=== PATIENT | male | born 1970 | race Hispanic/Latino ===

== ENCOUNTER 2016-11-09 13:24 | Emergency (ER) | payer MEDICAID, OTHER ==
[2016-11-09 13:42] VITALS: BMI 35.2
[2016-11-09 13:45] VITALS: RESP 16
--- NOTE | 2016-11-09 14:00 | ED PDOC ---
Arrival/HPI - General Chief Complaint: Lower Extremity Problem/Injury Time Seen by Provider: 11/09/16 13:44 Historian: Patient - History of Present Illness Narrative History of Present Illness (Text): 11/09/16 15:00 A 46 year old male, with no past medical history, presents to the emergency department complaining of left ankle pain. Patient reports pain radiates up his leg and to the back of buttocks. Patient reports pain worsens upon movement. He notes no trauma or swelling. Patient denies any other complaints at this time. Symptom Onset: Sudden Symptom Course: Unchanged Activities at Onset: Rest Associated Symptoms (Text): none Past Medical History - Provider Review Nursing Documentation Reviewed: Yes - Infectious Disease Hx of Infectious Diseases: None - Cardiac Hx Hypertension: Yes - Pulmonary Hx Respiratory Disorders: No - Neurological Hx Neurological Disorder: No - Renal Hx Renal Disorder: No - Endocrine/Metabolic Hx Endocrine Disorders: No - Hematological/Oncological Hx Blood Disorders: No - Integumentary Hx Dermatological Disorder: No - Musculoskeletal/Rheumatological Hx Arthritis: Yes Hx Gout: Yes - Gastrointestinal Hx Gastrointestinal Disorders: No - Genitourinary/Gynecological Hx Genitourinary Disorders: No - Psychiatric Hx Psychophysiologic Disorder: No Hx Depression: No Hx Substance Use: No - Surgical History Hx Joint Replacement: Yes (R knee) Other/Comment: right knee revision 11/19/2014 - Anesthesia Hx Anesthesia: Yes Hx Anesthesia Reactions: No Hx Malignant Hyperthermia: No - Suicidal Assessment Feels Threatened In Home Enviroment: No Family/Social History - Physician Review Nursing Documentation Reviewed: Yes Family/Social History: No Known Family HX Smoking Status: Never Smoked Hx Alcohol Use: No Hx Substance Use: No Hx Substance Use Treatment: No Allergies/Home Meds Allergies/Adverse Reactions: Allergies No Known Allergies Allergy (Verified 11/30/11 02:36) Home Medications: Home Meds Medication Instructions Recorded Confirmed Allopurinol 100 mg PO DAILY 11/30/11 06/10/15 Enalapril Maleate [Enalapril] 20 mg PO DAILY 11/30/11 06/10/15 Simvastatin 20 mg PO DAILY 11/30/11 06/10/15 Review of Systems - Physician Review All systems were reviewed & negative as marked: Yes - Review of Systems Constitutional: Normal Eyes: Normal ENT: Normal Respiratory: Normal Cardiovascular: Normal Gastrointestinal: Normal Genitourinary Male: Normal Musculoskeletal: Other (L ankle pain) Skin: Normal Neurological: Normal Endocrine: Normal Hemo/Lymphatic: Normal Psychiatric: Normal Physical Exam Vital Signs Reviewed: Yes Vital Signs Temp Pulse Resp BP Pulse Ox 11/09/16 16:35 97.7 F 65 16 110/63 96 11/09/16 13:24 98.1 F 70 16 122/65 95 Temperature: Afebrile Blood Pressure: Normal Pulse: Regular Respiratory Rate: Normal Appearance: Positive for: Well-Appearing, Non-Toxic, Comfortable Pain Distress: None Mental Status: Positive for: Alert and Oriented X 3 - Systems Exam Head: Present: Atraumatic, Normocephalic Pupils: Present: PERRL Extroacular Muscles: Present: EOMI Conjunctiva: Present: Normal Mouth: Present: Moist Mucous Membranes Neck: Present: Normal Range of Motion Respiratory/Chest: Present: Clear to Auscultation, Good Air Exchange. No: Respiratory Distress, Accessory Muscle Use Cardiovascular: Present: Regular Rate and Rhythm, Normal S1, S2. No: Murmurs Abdomen: Present: Normal Bowel Sounds. No: Tenderness, Distention, Peritoneal Signs Upper Extremity: Present: Normal Inspection. No: Cyanosis, Edema Lower Extremity: Present: Tenderness (around medial malleolus, strength intact) . No: Swelling (calf), Other (tenderness sciatica) Neurological: Present: GCS=15, CN II-XII Intact, Speech Normal Skin: Present: Warm, Dry, Normal Color. No: Rashes Psychiatric: Present: Alert, Oriented x 3, Normal Insight, Normal Concentration Medical Decision Making ED Course and Treatment: 11/09/16 13:56 Impression: A 46 year old male with radiating left ankle pain. Differential Diagnosis included but are not limited to: tendonitis vs. muscle strain vs. DVT Plan: -- Radiology ankle left -- labs -- Toradol -- Reassess and disposition Prior Visits: Notes and results from previous visits were reviewed. Patient last reported to the emergency department on 06/10/15 for evaluation of right hand pain. Patient was discharged and advised to take Vicoprofen. Progress Notes: 11/09/16 18:57 Sono reported by [employer] tech as negative. Patient is feeling better. Will Rx Naproxen and have him f/u with his PMD. - Lab Interpretations Lab Results: Lab Results 11/09/16 15:58: D-Dimer, Quantitative 0.92 H I have reviewed the lab results: Yes - RAD Interpretation Radiology Orders: 11/09/16 13:52 ANKLE LEFT 3 VIEWS ROUTINE [RAD] Stat 11/09/16 17:56 DUPLEX LOWER EXTRM VEIN LEFT [US] Stat - Medication Orders Current Medication Orders: Discontinued Medications Ketorolac Tromethamine (Toradol) 60 mg IM STAT STA Stop: 11/09/16 13:53 Last Admin: 11/09/16 15:53 Dose: 60 mg - Scribe Statement The provider has reviewed the documentation as recorded by the Lela Black Provider Scribe Attestation: All medical record entries made by the Shobhaibjuliana were at my direction and personally dictated by me. I have reviewed the chart and agree that the record accurately reflects my personal performance of the history, physical exam, medical decision making, and the department course for this patient. I have also personally directed, reviewed, and agree with the discharge instructions and disposition. Disposition/Present on Arrival - Present on Arrival Any Indicators Present on Arrival: No History of DVT/PE: No History of Uncontrolled Diabetes: No Urinary Catheter: No History of Decub. Ulcer: No History Surgical Site Infection Following: None - Disposition Have Diagnosis and Disposition been Completed?: Yes Diagnosis: Leg pain, Sciatica, Ankle strain Disposition: HOME/ ROUTINE Disposition Time: 18:57 Patient Plan: Discharge Patient Problems: Current Active Problems Problem Status Onset Ankle strain Acute Leg pain Acute Sciatica Acute Condition: IMPROVED Discharge Instructions (ExitCare): Muscle Strain (ED), Sciatica (ED) Additional Instructions: Mr Juarez, thank you for letting us take care of you today. Your provider was Dr. Powell. You were treated for Leg Pain, Sciatica. The emergency medical care you received today was directed at your acute symptoms. If you were prescribed any medication, please fill it and take as directed. It may take several days for your symptoms to resolve. Return to the Emergency Department if your symptoms worsen, do not improve, or if you have any other problems. Please contact your doctor or call one of the physicians/clinics you have been referred to that are listed on the Patient Visit Information form that is included in your discharge packet. Bring any paperwork you were given at discharge with you along with any medications you are taking to your follow up visit. Our treatment cannot replace ongoing medical care by a primary care provider (PCP) outside of the emergency department. Thank you for allowing the [facility] team to be part of your care today. If you had an X-Ray or CT scan: A Radiologist will review the ED reading if any change in treatment is needed we will contact you. If you had a blood, urine, or wound culture: It will take several days for the results, if any change in treatment is needed we will contact you. If you had an STI test: It will take 48 hours for the results. Please call after 1 week if you have not heard back. Prescriptions: Naproxen 500 mg PO BID PRN #30 tab PRN Reason: Pain, Moderate (4-7) Referrals: Macrina Rivera MD [Primary Care Provider] - Follow up with primary Forms: [employer] (Panamanian), WORK NOTE
--- NOTE | 2016-11-09 16:16 | RAD ---
PROCEDURE: Left Ankle Radiographs. HISTORY: ankle pain r/o fx COMPARISON: None FINDINGS: BONES: Normal. No fracture. JOINTS: Normal. No osteoarthritis. Ankle mortise maintained. Talar dome intact SOFT TISSUES: Normal. OTHER FINDINGS: None. IMPRESSION: Normal left ankle radiographs.
[2016-11-09 16:35] VITALS: BP 110/63; PULSE 65; TEMP 97.7; O2SAT 96
--- NOTE | 2016-11-10 18:14 | US ---
PROCEDURE: Left lower extremity venous US HISTORY: Leg pain and swelling. Evaluate for DVT. PHYSICIAN(S): Naresh Maldonado MD. TECHNIQUE: Duplex sonography and color-flow Doppler with graded compression were used to evaluate the deep venous system of the left lower extremity. FINDINGS: The visualized deep venous system of the left lower extremity is sonographically normal and compressible. Normal wave forms and augmentation are seen. There is no sonographic evidence for deep venous thrombosis in the visualized segments of the left lower extremity. IMPRESSION: 1. No sonographic evidence for deep venous thrombosis in the visualized segments of the left lower extremity.
== END 2016-11-09 19:16 | disposition home or self-care (01) ==
LOC: ED 13:24
DX: S96.912A Strain of unspecified muscle and tendon at ankle and foot level, left foot, initial encounter (principal); X58.XXXA Exposure to other specified factors, initial encounter; Y92.89 Other specified places as the place of occurrence of the external cause; M54.30 Sciatica, unspecified side; M79.605 Pain in left leg; I10 Essential (primary) hypertension; M19.90 Unspecified osteoarthritis, unspecified site
CPT/HCPCS: 73610; 85378; 93971; 96372; 99281; J1885

== ENCOUNTER 2018-01-21 07:33 | Emergency (ER) | payer OTHER ==
[2018-01-21 07:33] VITALS: BMI 35.2
--- NOTE | 2018-01-21 09:08 | ED PDOC ---
Arrival/HPI - General Chief Complaint: Upper Extremity Problem/Injury Time Seen by Provider: 01/21/18 07:53 - History of Present Illness Narrative History of Present Illness (Text): 47 year old male with history of gout and HTN presents with 4 days of left wrist pain, swelling and redness that radiates to his elbow and right 3rd digit proximal interphalangeal joint redness, swelling, and tenderness. Patient reports that the pain is squeezing and has not remitted with motrin Q4, colcigen TID since Monday. Patient reports pain and swelling has worsened over the past 4 days. 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 Patient denies fever, headache, dizziness, chest pain, heart palpitations, shortness of breath, nausea, vomiting, constipation, diarrhea, dysuria, hematuria. Patient's PCP is Dr. Emil Rivera. ([facility]) Past Medical History - Provider Review Nursing Documentation Reviewed: Yes - Infectious Disease Hx of Infectious Diseases: None - Cardiac Hx Hypertension: Yes - Pulmonary Hx Respiratory Disorders: No - Neurological Hx Neurological Disorder: No - Renal Hx Renal Disorder: No - Endocrine/Metabolic Hx Endocrine Disorders: No - Hematological/Oncological Hx Blood Disorders: No - Integumentary Hx Dermatological Disorder: No - Musculoskeletal/Rheumatological Hx Arthritis: Yes Hx Gout: Yes - Gastrointestinal Hx Gastrointestinal Disorders: No - Genitourinary/Gynecological Hx Genitourinary Disorders: No - Psychiatric Hx Psychophysiologic Disorder: No Hx Depression: No Hx Substance Use: No - Surgical History Hx Joint Replacement: Yes (R knee) Other/Comment: right knee revision 11/19/2014 - Anesthesia Hx Anesthesia: Yes Hx Anesthesia Reactions: No Hx Malignant Hyperthermia: No - Suicidal Assessment Feels Threatened In Home Enviroment: No Family/Social History - Physician Review Nursing Documentation Reviewed: Yes Family/Social History: No Known Family HX Smoking Status: Never Smoked Hx Alcohol Use: No Hx Substance Use: No Hx Substance Use Treatment: No Allergies/Home Meds Allergies/Adverse Reactions: Allergies No Known Allergies Allergy (Verified 11/30/11 02:36) Home Medications: Home Meds Medication Instructions Recorded Confirmed Allopurinol 100 mg PO DAILY 11/30/11 06/10/15 Enalapril Maleate [Enalapril] 20 mg PO DAILY 11/30/11 06/10/15 Simvastatin 20 mg PO DAILY 11/30/11 06/10/15 Review of Systems - Physician Review All systems were reviewed & negative as marked: Yes - Review of Systems Constitutional: Normal Eyes: Normal ENT: Normal Respiratory: Normal Cardiovascular: Normal Gastrointestinal: Normal Genitourinary Male: Normal Musculoskeletal: Joint Swelling (redness, warmth of left wrist and right middle digit PIP joints) Skin: Other (redness and swelling of left wrist and right middle digit PIP joint ) Neurological: Normal Physical Exam Vital Signs Reviewed: Yes Temperature: Afebrile Blood Pressure: Normal Pulse: Regular Respiratory Rate: Normal Appearance: Positive for: Well-Appearing Pain Distress: Severe Mental Status: Positive for: Alert and Oriented X 3 - Systems Exam Head: Present: Atraumatic, Normocephalic Pupils: Present: PERRL Extroacular Muscles: Present: EOMI Conjunctiva: Present: Normal Nose (External): Present: Atraumatic Respiratory/Chest: Present: Clear to Auscultation Cardiovascular: Present: Regular Rate and Rhythm, Normal S1, S2 Abdomen: Present: Normal Bowel Sounds. No: Tenderness, Distention Upper Extremity: Present: NORMAL PULSES, Tenderness, Swelling (of left wrist and right middle finger. entire left hand is swollen), Erythema. No: Normal ROM Lower Extremity: Present: Normal Inspection, NORMAL PULSES, Normal ROM Neurological: Present: GCS=15, CN II-XII Intact, Speech Normal, Motor Func Grossly Intact Skin: Present: Warm, Dry. 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 Assessment: gout vs. arthritis Plan: Left wrist X ray ordered to evaluate for fractures or other causes for swelling of left hand. Tramadol ordered for pain. Prednisone ordered to reduce inflammation. 01/21/18 09:12 Patient's left wrist X ray shows no acute changes. Patient can be discharged with a medrol dose pack and tramadol 50 mg to relieve symptoms. (Evita Brower) 47 yo male with c/o left wrist pain and swelling and right 3rd digit PIP swelling. No trauma. I agree with resident history, physical, assessment and plan. Patient's wrist obtained and xray which was negative for acute fracture. Patient was given good pain control and steroids. He will be discharged on Tramadol Rx and a Medrol dose pack. We advised him to make sure he follow ups with his primary care doctor. (Michael Powell) - RAD Interpretation Radiology Orders: 01/21/18 08:42 WRIST, LEFT 3 VIEWS [RAD] Stat - Medication Orders Current Medication Orders: Discontinued Medications Prednisone (Prednisone Tab) 50 mg PO STAT STA Stop: 01/21/18 08:40 Last Admin: 01/21/18 09:15 Dose: 50 mg Tramadol HCl (Ultram) 50 mg PO STAT STA Stop: 01/21/18 08:39 Last Admin: 01/21/18 09:14 Dose: 50 mg BANNER Pain Assessment Document 01/21/18 09:14 REEDJ (Rec: 01/21/18 09:14 REEDJ [id number]) Pain Reassessment Is this a pain reassessment? Yes Sleep Is patient sleeping during reassessment? No Presence of Pain Presence of Pain Yes Pain Scale Used Pain Scale Used Numeric Location Left, Right or Bilateral Left Pain Location Body Site Wrist Hand Description Description Constant Alleviating Factors/Management Medication Techniques - PA / BAIL AGENT / Resident Statement / has reviewed & agrees with the documentation as recorded. /DO has examined the patient and agrees with the treatment plan. Disposition/Present on Arrival - Present on Arrival Any Indicators Present on Arrival: No History of DVT/PE: No History of Uncontrolled Diabetes: No Urinary Catheter: No History of Decub. Ulcer: No History Surgical Site Infection Following: None - Disposition Have Diagnosis and Disposition been Completed?: Yes Disposition Time: 09:15 Patient Plan: Discharge - Disposition Diagnosis: Gout Disposition: HOME/ ROUTINE Condition: IMPROVED Discharge Instructions (ExitCare): Gout, Lifestyle Changes to Manage Gout Additional Instructions: LADAN CONRAD JR, thank you for letting us take care of you today. Your provider was Michael L Rabines DO and you were treated for GOUT. The emergency medical care you received today was directed at your acute symptoms. If you were prescribed any medication, please fill it and take as directed. It may take several days for your symptoms to resolve. Return to the Emergency Department if your symptoms worsen, do not improve, or if you have any other problems. Please contact your doctor or call one of the physicians/clinics you have been referred to that are listed on the Patient Visit Information form that is included in your discharge packet. Bring any paperwork you were given at discharge with you along with any medications you are taking to your follow up visit. Our treatment cannot replace ongoing medical care by a primary care provider outside of the emergency department. Thank you for allowing the [email or web address] team to be part of your care today. If you had an X-Ray or CT scan: A Radiologist will review the ED reading if any change in treatment is needed we will contact you. If you had a blood, urine, or wound culture: It will take several days for the results, if any change in treatment is needed we will contact you. If you had an STI test: It will take 48 hours for the results. Please call after 1 week if you have not heard back. Prescriptions: Methylprednisolone [Medrol Dose Pack (21 tabs)] 4 mg PO DAILY #21 mg traMADol [Ultram] 50 mg PO Q6H PRN #20 tab PRN Reason: Pain, Moderate (4-7) Referrals: Filiberto Rivera MD [Staff Provider] - Follow up with primary Forms: [employer] (Danish), WORK NOTE
[2018-01-21 09:25] VITALS: BP 138/82; PULSE 92; RESP 16; TEMP 98.4; O2SAT 99
--- NOTE | 2018-01-21 10:18 | RAD ---
Date of service: 01/21/2018 PROCEDURE: Left Wrist Radiographs. HISTORY: gout attack COMPARISON: None. FINDINGS: BONES: There is severe reduced joint space between the pisiform and ulna. There are subarticular cystic changes in the distal ulna and pisiform. There are marginal osteophytes of the ulna. JOINTS: Normal. No dislocation. SOFT TISSUES: There is soft tissue swelling overlying the ulnocarpal joint. OTHER FINDINGS: None. 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 No definite evidence for bone erosion. Findings are most compatible with gout with the stated clinical history.
== END 2018-01-21 09:21 | disposition home or self-care (01) ==
LOC: ED 07:33
DX: M10.9 Gout, unspecified (principal); I10 Essential (primary) hypertension

== ENCOUNTER 2018-04-01 11:03 | Emergency (ER) | payer OTHER ==
[2018-04-01 11:03] VITALS: BMI 35.2
[2018-04-01 11:24] VITALS: BP 110/74; PULSE 75; RESP 16; TEMP 98.1; O2SAT 96
--- NOTE | 2018-04-01 11:49 | ED PDOC ---
Arrival/HPI - History of Present Illness Narrative History of Present Illness (Text): 04/01/18 11:43 Pt is a 47 yo M with pmhx of gout, and HTN who presents for R eye pain. 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 He reports that after he felt the something come into his eye, he immediately flushed the eye for 1 minute. He then stated that he felt a bit better, but then yesterday he noticed that the pain came back and there was some burning in his eye particularly when he would blink. He got some eye drops and attempted to flush his eyes again with the eye drops, but states that it didnt help. He currently denies any photophobia, double vision, change in vision, any discharge from the eye, and he denies being a contact lens user. He admits to a burning pain that happens when he blinks and a feeling that there is something still in his eye. He also denies any fevers, chills, SOB, CP, palp, abd pain, or n/v. Pmhx: Gout, HTN Pshx: R knee revision All: NKDA Social: No smoking, no alcohol or illicit drug use Fam Hx: Denies <Gurdeep Bernal - Last Filed: 04/01/18 13:35> <Emil Santana DO - Last Filed: 04/01/18 17:56> - General Chief Complaint: Eye Problem Time Seen by Provider: 04/01/18 11:06 Past Medical History - Provider Review Nursing Documentation Reviewed: Yes - Infectious Disease Hx of Infectious Diseases: None - Cardiac Hx Cardiac Disorders: Yes Hx Hypertension: Yes - Pulmonary Hx Respiratory Disorders: No - Neurological Hx Neurological Disorder: No - HEENT Hx HEENT Disorder: No - Renal Hx Renal Disorder: No - Endocrine/Metabolic Hx Endocrine Disorders: No - Hematological/Oncological Hx Blood Disorders: No - Integumentary Hx Dermatological Disorder: No - Musculoskeletal/Rheumatological Hx Musculoskeletal Disorders: Yes Hx Arthritis: Yes Hx Back Pain: Yes Hx Gout: Yes - Gastrointestinal Hx Gastrointestinal Disorders: No - Genitourinary/Gynecological Hx Genitourinary Disorders: No - Psychiatric Hx Psychophysiologic Disorder: No Hx Depression: No Hx Substance Use: No - Surgical History Hx Joint Replacement: Yes (R knee) Other/Comment: right knee - Anesthesia Hx Anesthesia: Yes Hx Anesthesia Reactions: No Hx Malignant Hyperthermia: No - Suicidal Assessment Feels Threatened In Home Enviroment: No <Gurdeep Bernal - Last Filed: 04/01/18 13:35> Family/Social History - Physician Review Nursing Documentation Reviewed: Yes Family/Social History: No Known Family HX Smoking Status: Never Smoked Hx Alcohol Use: No Hx Substance Use: No Hx Substance Use Treatment: No <Lex Bernalhammad - Last Filed: 04/01/18 13:35> Allergies/Home Meds <Lex Bernalhammad - Last Filed: 04/01/18 13:35> <Emil Santana DO - Last Filed: 04/01/18 17:56> Allergies/Adverse Reactions: Allergies No Known Allergies Allergy (Verified 11/30/11 02:36) Home Medications: Home Meds Medication Instructions Recorded Confirmed Enalapril Maleate [Enalapril] 20 mg PO DAILY 11/30/11 04/01/18 Review of Systems - Physician Review All systems were reviewed & negative as marked: Yes - Review of Systems Constitutional: absent: Fevers Eyes: Eye Pain (R sided burning pain). absent: Vision Changes, Photophobia Respiratory: absent: SOB, Cough Cardiovascular: absent: Chest Pain, Palpitations Gastrointestinal: absent: Abdominal Pain, Nausea, Vomiting <Gurdeep Bernal - Last Filed: 04/01/18 13:35> Physical Exam Vital Signs Reviewed: Yes Vital Signs Temp Pulse Resp BP Pulse Ox 04/01/18 11:14 98.1 F 75 16 110/74 96 Temperature: Afebrile Blood Pressure: Normal Pulse: Regular Respiratory Rate: Normal Appearance: Positive for: Non-Toxic, Uncomfortable Pain Distress: Mild Mental Status: Positive for: Alert and Oriented X 3 - Systems Exam Head: Present: Atraumatic, Normocephalic Pupils: Present: PERRL Extroacular Muscles: Present: EOMI Conjunctiva: Present: Normal, Other (Performed a fluorescein slit lamp test, minor abrasion noted in the superior nasal quadrant of the R eye. ) Mouth: Present: Moist Mucous Membranes Respiratory/Chest: Present: Clear to Auscultation, Good Air Exchange. No: Respiratory Distress, Accessory Muscle Use, Wheezes Cardiovascular: Present: Regular Rate and Rhythm, Normal S1, S2. No: Murmurs, Rub, Gallop Abdomen: Present: Normal Bowel Sounds. No: Tenderness, Distention, Peritoneal Signs, Rebound, Guarding Lower Extremity: Present: Normal Inspection. No: Edema, CALF TENDERNESS Neurological: Present: GCS=15, CN II-XII Intact, Speech Normal Skin: Present: Warm, Dry, Normal Color. No: Rashes Psychiatric: Present: Alert, Oriented x 3, Normal Insight, Normal Concentration <Gurdeep Bernal - Last Filed: 04/01/18 13:35> Vital Signs Temp Pulse Resp BP Pulse Ox 04/01/18 11:14 98.1 F 75 16 110/74 96 <Emil Santana DO - Last Filed: 04/01/18 17:56> Medical Decision Making ED Course and Treatment: 04/01/18 12:08 Pt is a 47 yo M with pmhx detailed above who presented with R eye pain after foreign body from metal grinding at work. No foreign body noted on exam. - performed fluorescein slit lamp, with minor abrasion noted. - Abx drops prescribed. Encouraged pt to f/u outpt with opthamology. <Gurdeep Bernal - Last Filed: 04/01/18 13:35> ED Course and Treatment: 04/01/18 12:15 IMPRESSION: No acute findings related to/accounting for the clinical presentation. <Emil Santana DO - Last Filed: 04/01/18 17:56> - PA / SYSTEM TECHNOLOGIST / Resident Statement WERNER has reviewed & agrees with the documentation as recorded. WERNER has examined the patient and agrees with the treatment plan. - Scribe Statement The provider has reviewed the documentation as recorded by the Shobhaibjuliana Evangelista All medical record entries made by the Lela were at my direction and personally dictated by me. I have reviewed the chart and agree that the record accurately reflects my personal performance of the history, physical exam, medical decision making, and the department course for this patient. I have also personally directed, reviewed, and agree with the discharge instructions and disposition. <Emil Santana DO - Last Filed: 04/01/18 17:56> Disposition/Present on Arrival - Present on Arrival Any Indicators Present on Arrival: No History of DVT/PE: No History of Uncontrolled Diabetes: No Urinary Catheter: No History of Decub. Ulcer: No History Surgical Site Infection Following: None - Disposition Have Diagnosis and Disposition been Completed?: Yes Disposition Time: 12:10 <Gurdeep Bernal - Last Filed: 04/01/18 13:35> - Disposition Disposition Time: 11:40 <Emil Santana DO - Last Filed: 04/01/18 17:56> - Disposition Diagnosis: Corneal abrasion Disposition: HOME/ ROUTINE Condition: GOOD Discharge Instructions (ExitCare): Corneal Abrasion (DC), Foreign Body in Eye (DC) Additional Instructions: LADAN CONRAD JR, thank you for letting us take care of you today. The emergency medical care you received today was directed at your acute symptoms. If you were prescribed any medication, please fill it and take as directed. It may take several days for your symptoms to resolve. Return to the Emergency Department if your symptoms worsen, do not improve, or if you have any other problems. Please contact your doctor or call one of the physicians/clinics you have been referred to that are listed on the Patient Visit Information form that is included in your discharge packet. Bring any paperwork you were given at discharge with you along with any medications you are taking to your follow up visit. Our treatment cannot replace ongoing medical care by a primary care provider outside of the emergency department. Thank you for allowing the [facility] team to be part of your care today. Follow up with the eye doctor tomorrow for re-evaluation and further management. Prescriptions: Polymyxin/Trimethoprim Sulfate [Polytrim Ophth Soln] 2 drop OD Q6 #1 bottle Referrals: Charlie Cramer MD [Staff Provider] - Follow up with primary Forms: [email or web address] ([place])
== END 2018-04-01 12:09 | disposition home or self-care (01) ==
LOC: ED 11:03
DX: S05.01XA Injury of conjunctiva and corneal abrasion without foreign body, right eye, initial encounter (principal); X58.XXXA Exposure to other specified factors, initial encounter; Y92.89 Other specified places as the place of occurrence of the external cause; Y99.0 Civilian activity done for income or pay

== ENCOUNTER 2018-04-22 06:21 | Emergency (ER) | payer OTHER ==
[2018-04-22 06:22] VITALS: BMI 35.2
[2018-04-22 06:47] VITALS: RESP 18; O2SAT 96
--- NOTE | 2018-04-22 07:12 | ED PDOC ---
Arrival/HPI - General Chief Complaint: Upper Extremity Problem/Injury Time Seen by Provider: 04/22/18 06:59 - History of Present Illness Narrative History of Present Illness (Text): 47 yr old male w/ hx of gout, HTN, HLD p/w RUE and LUE pain. Pt notes pain to R and L elbow and R middle finger, started 4 days ago, feels exactly like previous gout flare. Pt notes he has been taking Ibuprofen for the pain with mild relief. He notes that he came in today because yesterday he tried to see his PMD: Dr. Rivera, but PMDs office was closed. He notes that he commonly has flairs like this from his gout, even thought he maintains a relatively protein and etoh free diet. He notes that usually when he goes to Dr. Gan office he gets steroid injections. He denies any recent injection immediately before this pain started. No falls or trauma. No open wounds. No fever, chills or night sweats. No chest pain or sob. No abdominal pain or GI or complaints. No rashes. PMD: Dr. Rivera 04/22/18 07:23 Past Medical History - Infectious Disease Hx of Infectious Diseases: None - Cardiac Hx Cardiac Disorders: Yes Hx Hypertension: Yes - Pulmonary Hx Respiratory Disorders: No - Neurological Hx Neurological Disorder: No - HEENT Hx HEENT Disorder: No - Renal Hx Renal Disorder: No - Endocrine/Metabolic Hx Endocrine Disorders: No - Hematological/Oncological Hx Blood Disorders: No - Integumentary Hx Dermatological Disorder: No - Musculoskeletal/Rheumatological Hx Musculoskeletal Disorders: Yes Hx Arthritis: Yes Hx Back Pain: Yes Hx Gout: Yes - Gastrointestinal Hx Gastrointestinal Disorders: No - Genitourinary/Gynecological Hx Genitourinary Disorders: No - Psychiatric Hx Psychophysiologic Disorder: No Hx Depression: No Hx Substance Use: No - Surgical History Hx Joint Replacement: Yes (R knee) Other/Comment: right knee - Anesthesia Hx Anesthesia: Yes Hx Anesthesia Reactions: No Hx Malignant Hyperthermia: No - Suicidal Assessment Feels Threatened In Home Enviroment: No Family/Social History Family/Social History: Unknown Family HX Smoking Status: Never Smoked Hx Alcohol Use: No Hx Substance Use: No Hx Substance Use Treatment: No Allergies/Home Meds Allergies/Adverse Reactions: Allergies No Known Allergies Allergy (Verified 04/22/18 06:35) Home Medications: Home Meds Medication Instructions Recorded Confirmed Enalapril Maleate [Vasotec] 20 mg PO DAILY 04/22/18 04/22/18 Simvastatin [Zocor] 1 tab PO DAILY 04/22/18 04/22/18 Review of Systems - Review of Systems Constitutional: absent: Fatigue, Weight Change, Fevers Eyes: absent: Vision Changes, Photophobia ENT: absent: Hearing Changes, Tinnitus Respiratory: absent: SOB, Cough Cardiovascular: absent: Chest Pain, Palpitations Gastrointestinal: absent: Abdominal Pain, Stool Changes, Vomiting Genitourinary Male: absent: Dysuria, Frequency Musculoskeletal: absent: Arthralgias, Back Pain Skin: absent: Rash Neurological: absent: Headache, Dizziness Endocrine: absent: Diaphoresis Psychiatric: absent: Anxiety Physical Exam Vital Signs Reviewed: Yes Vital Signs Temp Pulse Resp BP Pulse Ox 04/22/18 06:36 98.4 F 89 18 137/85 96 Temperature: Afebrile Blood Pressure: Normal Pulse: Regular Respiratory Rate: Normal Appearance: Positive for: Well-Appearing, Non-Toxic, Comfortable Pain Distress: None Mental Status: Positive for: Alert and Oriented X 3 - Systems Exam Head: Present: Atraumatic, Normocephalic. No: Tenderness Pupils: Present: PERRL Extroacular Muscles: Present: EOMI Conjunctiva: Present: Normal Ears: Present: Normal Mouth: Present: Moist Mucous Membranes, Dry Pharnyx: Present: Normal Nose (Internal): Present: Normal Inspection, No Active Bleeding Neck: Present: Normal Range of Motion. No: Meningeal Signs, MIDLINE TENDERNESS Respiratory/Chest: Present: Clear to Auscultation, Good Air Exchange. No: Respiratory Distress Cardiovascular: Present: Regular Rate and Rhythm, Murmurs, Normal S1, S2, Peripheal Pulses Present Abdomen: Present: Normal Bowel Sounds. No: Tenderness, Distention, Peritoneal Signs Back: Present: Normal Inspection. No: CVA Tenderness Upper Extremity: Present: Normal Inspection, Normal ROM (pain w/ active ROM, no pain w/ passive ROM), NORMAL PULSES, Tenderness (R elbow, L elbow and R 3rd PIP, warm to touch, TTP, no overlying erythema or crepitus. No contusions. ), Capillary Refill < 2s. No: Erythema, Deformity Lower Extremity: Present: Normal Inspection Neurological: Present: GCS=15, CN II-XII Intact, Speech Normal Skin: Present: Warm, Dry Psychiatric: Present: Alert, Oriented x 3, Normal Insight Medical Decision Making ED Course and Treatment: 47 yr old male w/ hx of htn, hld, gout p/w RUE and LUE pain similiar to previous gout flare. No signs of overlying erythema, fluctuance, induration, crepitus or trauma. Similiar occurences in past where pt usually saw PMD but had trouble seeing PMD yesterday. No recent injections or breaks in skin. No Knavel signs in RUE 3rd digit. No signs of septic joint on exam. Will seek xrays and reassessment. Pending: Xray, Pain control, Reassessment. 04/22/18 07:55 Xrays reviewed: unremarkable. Pending reassessment. 04/22/18 08:00 No erythema to joint Pain improved, Clear for D/c Home. Disposition/Present on Arrival - Present on Arrival Any Indicators Present on Arrival: No History of DVT/PE: No History of Uncontrolled Diabetes: No Urinary Catheter: No History of Decub. Ulcer: No History Surgical Site Infection Following: None - Disposition Have Diagnosis and Disposition been Completed?: Yes Diagnosis: Gout Disposition: HOME/ ROUTINE Disposition Time: 08:00 Patient Problems: Current Active Problems Problem Status Onset Gout Acute Condition: GOOD Discharge Instructions (ExitCare): Gout, Lifestyle Changes to Manage Gout Additional Instructions: LADAN CONRAD JR, thank you for letting us take care of you today. Your provider was Reji Barrera and you were treated for infection. The emergency medical care you received today was directed at your acute symptoms. If you were prescribed any medication, please fill it and take as directed. It may take several days for your symptoms to resolve. Return to the Emergency Department if your symptoms worsen, do not improve, or if you have any other problems. Please contact your doctor or call one of the physicians/clinics you have been referred to that are listed on the Patient Visit Information form that is included in your discharge packet. Bring any paperwork you were given at discharge with you along with any medications you are taking to your follow up visit. Our treatment cannot replace ongoing medical care by a primary care provider outside of the emergency department. Thank you for allowing the [facility] team to be part of your care today. If you had an X-Ray or CT scan: A Radiologist will review the ED reading if any change in treatment is needed we will contact you. If you had a blood, urine, or wound culture: It will take several days for the results, if any change in treatment is needed we will contact you. If you had an STI test: It will take 48 hours for the results. Please call after 1 week if you have not heard back. Prescriptions: Methylprednisolone [Medrol Dose Pack (21 tabs)] 4 mg PO ASDIR #21 mg traMADol [Ultram] 50 mg PO Q12H PRN 3 Days #5 tab PRN Reason: Pain, Moderate (4-7) Referrals: Filiberto Rivera MD [Primary Care Provider] - Follow up with primary Forms: [employer] ([place]), WORK NOTE
[2018-04-22 07:28] VITALS: BP 146/83; PULSE 73; TEMP 98.3
--- NOTE | 2018-04-22 10:48 | RAD ---
Date of service: 04/22/2018 PROCEDURE: Right middle finger radiographs. HISTORY: hx of gout, gout pain COMPARISON: 01/21/2018 TECHNIQUE: AP radiograph of the right hand, as well as spot oblique and lateral images of right middle finger were obtained. FINDINGS: RIGHT MIDDLE FINGER: Right middle finger normal, without fracture of focal lesion. Remainder of the right hand (as seen on the AP view) grossly unremarkable. JOINTS: No acute findings. Arthritic changes noted in the expected proximal and distal interphalangeal joint distribution. SOFT TISSUES: Juxta-articular soft tissue swelling noted proximal interphalangeal joint 3rd digit. OTHER FINDINGS: Radiographic manifestations of gouty arthropathy identified on the prior study in the wrist have improved. IMPRESSION: No acute fracture. Interval improvement in gouty arthropathy particularly about the wrist and distal ulna. Soft tissue swelling primarily affecting the proximal interphalangeal joint right 3rd digit. Concordant results with the preliminary interpretation rendered by the emergency department physician procedure.
--- NOTE | 2018-04-22 10:48 | RAD ---
Date of service: 04/22/2018 PROCEDURE: Radiographs of the right elbow. HISTORY: hx of gout, gout pain COMPARISON: No prior. FINDINGS: BONES: No acute findings. Incidental small olecranon spur. JOINTS: Normal. No osteoarthritis. SOFT TISSUES: Normal. JOINT EFFUSION: None. OTHER FINDINGS: None. IMPRESSION: No significant or acute findings to account for/ related to the clinical presentation. Additional benign and/or incidental findings described above.
--- NOTE | 2018-04-22 10:49 | RAD ---
Date of service: 04/22/2018 PROCEDURE: Radiographs of the left elbow. HISTORY: hx of gout, gout pain COMPARISON: April 22, 2018 right elbow. FINDINGS: BONES: Small olecranon spur identified similar to that seen on the contralateral side.. No fracture. JOINTS: Normal. No osteoarthritis. SOFT TISSUES: Normal. JOINT EFFUSION: None. OTHER FINDINGS: None IMPRESSION: No significant or acute findings to account for/ related to the clinical presentation. Additional benign and/or incidental findings described above. Concordant results with the preliminary interpretation rendered by the emergency department physician procedure.
== END 2018-04-22 08:17 | disposition home or self-care (01) ==
LOC: ED 06:21
DX: M10.9 Gout, unspecified (principal); E78.5 Hyperlipidemia, unspecified; I10 Essential (primary) hypertension
CPT/HCPCS: 73080; 73140; 96372; 99284; J1885

== ENCOUNTER 2018-11-11 18:02 | Emergency (ER) | payer OTHER ==
[2018-11-11 18:03] VITALS: BMI 35.2
[2018-11-11 18:48] VITALS: RESP 18; TEMP 98.3
--- NOTE | 2018-11-11 19:07 | ED PDOC ---
Arrival/HPI - General Chief Complaint: Lower Extremity Problem/Injury Time Seen by Provider: 11/11/18 18:36 Historian: Patient - History of Present Illness Narrative History of Present Illness (Text): 48 y/o male with PMH of HTN presents to the ED c/o left foot pain x 2 days. Starting yesterday, patient began to experience sharp pains to the left plantar distal foot that worsened with walking and bearing weight. Today pt noticed increased pain, swelling, and mild redness to both plantar and dorsal distal mid foot. Has not taken any medication for pain. No recent travel, immobilization, surgery, history of malignancy. Denies open wounds, injury/trauma, numbness, weakness, paresthesias, pain elsewhere, fever, chills, nausea, vomiting, dizziness, calf pain or swelling, or any other associated symptoms. Past Medical History - Provider Review Nursing Documentation Reviewed: Yes - Infectious Disease Hx of Infectious Diseases: None - Cardiac Hx Cardiac Disorders: Yes Hx Hypertension: Yes - Pulmonary Hx Respiratory Disorders: No - Neurological Hx Neurological Disorder: No - HEENT Hx HEENT Disorder: No - Renal Hx Renal Disorder: No - Endocrine/Metabolic Hx Endocrine Disorders: No - Hematological/Oncological Hx Blood Disorders: No - Integumentary Hx Dermatological Disorder: No - Musculoskeletal/Rheumatological Hx Musculoskeletal Disorders: Yes Hx Arthritis: Yes Hx Back Pain: Yes Hx Gout: Yes - Gastrointestinal Hx Gastrointestinal Disorders: No - Genitourinary/Gynecological Hx Genitourinary Disorders: No - Psychiatric Hx Psychophysiologic Disorder: No Hx Depression: No Hx Substance Use: No - Surgical History Hx Joint Replacement: Yes (R knee) Other/Comment: right knee - Anesthesia Hx Anesthesia: Yes Hx Anesthesia Reactions: No Hx Malignant Hyperthermia: No - Suicidal Assessment Feels Threatened In Home Enviroment: No Family/Social History - Physician Review Nursing Documentation Reviewed: Yes Family/Social History: No Known Family HX Smoking Status: Heavy Smoker > 10 Cigarettes Daily Hx Alcohol Use: No Hx Substance Use: No Hx Substance Use Treatment: No Allergies/Home Meds Allergies/Adverse Reactions: Allergies No Known Allergies Allergy (Verified 11/11/18 18:34) Home Medications: Home Meds Medication Instructions Recorded Confirmed Enalapril Maleate [Vasotec] 20 mg PO DAILY 04/22/18 11/11/18 Review of Systems - Review of Systems Constitutional: Normal. absent: Fevers Eyes: Normal. absent: Vision Changes Respiratory: Normal. absent: SOB Cardiovascular: Normal. absent: Chest Pain, Palpitations, Syncope Gastrointestinal: Normal. absent: Abdominal Pain, Nausea, Vomiting Musculoskeletal: Other (left foot pain). absent: Back Pain, Neck Pain Skin: Other (swelling left foot) Neurological: Normal. absent: Headache, Dizziness Physical Exam Vital Signs Reviewed: Yes Vital Signs Temp Pulse Resp BP Pulse Ox 11/11/18 18:30 98.3 F 76 18 129/75 95 Temperature: Afebrile Blood Pressure: Normal Pulse: Regular Respiratory Rate: Normal Appearance: Positive for: Well-Appearing, Non-Toxic, Comfortable Pain Distress: None Mental Status: Positive for: Alert and Oriented X 3 - Systems Exam Head: Present: Atraumatic, Normocephalic Pupils: Present: PERRL Extroacular Muscles: Present: EOMI Conjunctiva: Present: Normal Mouth: Present: Moist Mucous Membranes Neck: Present: Normal Range of Motion Respiratory/Chest: Present: Clear to Auscultation, Good Air Exchange. No: Respiratory Distress, Accessory Muscle Use Cardiovascular: Present: Regular Rate and Rhythm, Normal S1, S2, Peripheal Pulses Present Upper Extremity: Present: Normal Inspection, Normal ROM Lower Extremity: Present: Normal Inspection, NORMAL PULSES, Normal ROM, Tenderness (dorsal and plantar left foot over 2nd-4th MTP joints), Erythema (dorsal left foot over 2nd-4th MTP joints), Temperature Abnormalties (mild increased warmth dorsal mid distal foot), Neurovascularly Intact, Capillary Refill < 2 s. No: Edema, CALF TENDERNESS, Emiliano's Sign, Swelling, Deformity Neurological: Present: GCS=15, Speech Normal, Motor Func Grossly Intact, Normal Sensory Function, Gait Normal Skin: Present: Warm, Dry, Normal Color. No: Rashes, Laceration, Abscess, Abrasion Psychiatric: Present: Alert, Oriented x 3, Normal Insight, Normal Concentration, Normal Affect, Normal Mood Medical Decision Making ED Course and Treatment: Initial Plan: * Labs * Left Foot XR * Toradol 20:02 CBC reviewed, no leukocytosis or left shift. ESR normal. CMP reviewed, unremarkable. XR read as no acute fracture or dislocation by me and Dr. Ramirez, but shows chronic degenerative changes Dr. Ramirez evaluated and examined patient at bedside and agrees with current plan of care and plan to discharge home on PO antibiotics. Will treat presumed cellulitis with PO Keflex and advise close podiatry and PMD followup. Outline of cellulitic area traced with skin marker. Pt advised to return for increasing redness, pain, or swelling. Left foot wrapped in TYRESE bandage and placed in surgical shoe. Pt refused crutches at this time. Diagnostic testing results and plan of care discussed with patient. Strict instructions given regarding prescription use, importance of followup, and signs/symptoms to return to ER including worsening pain, swelling, numbness, paresthesias, or any other new/worsening symptoms. Pt verbalized understanding of discussion. Patient is A&Ox3, ambulating with steady gait, with vital signs stable for discharge. - Lab Interpretations Lab Results: 11/11/18 19:45 11/11/18 19:45 Lab Results 11/11/18 19:45: PT 10.5, INR 0.95, APTT 29.4 11/11/18 19:45: Sodium 139, Potassium 4.7, Chloride 104, Carbon Dioxide 26, Anion Gap 14, BUN 22 H, Creatinine 0.9, Est GFR ( Amer) > 60, Est GFR (Non-Af Amer) > 60, Random Glucose 99, Uric Acid 8.2, Calcium 9.3, Total Bilirubin 0.5, AST 53, ALT 45, Alkaline Phosphatase 64, Total Protein 7.1, Albumin 4.1, Globulin 3.0, Albumin/Globulin Ratio 1.4 11/11/18 19:45: WBC 10.1, RBC 5.66, Hgb 16.3, Hct 48.8, MCV 86.2, MCH 28.8, MCHC 33.4, RDW 14.4, Plt Count 261, MPV 9.8, Neut % (Auto) 59.5, Lymph % (Auto) 26.5, Perkins % (Auto) 11.4 H, Eos % (Auto) 2.3, Baso % (Auto) 0.3, Lymph # (Auto) 2.7, Perkins # (Auto) 1.2 H, Eos # (Auto) 0.2, Baso # (Auto) 0.03, Absolute Neuts (auto) 6.04, ESR 9 I have reviewed the lab results: Yes - RAD Interpretation Radiology Orders: 11/11/18 18:50 FOOT LEFT 3 VIEWS ROUTINE [RAD] Stat Disposition/Present on Arrival - Present on Arrival Any Indicators Present on Arrival: No History of DVT/PE: No History of Uncontrolled Diabetes: No Urinary Catheter: No History of Decub. Ulcer: No History Surgical Site Infection Following: None - Disposition Have Diagnosis and Disposition been Completed?: Yes Diagnosis: Cellulitis, Foot pain Disposition: HOME/ ROUTINE Disposition Time: 21:00 Patient Plan: Discharge Condition: STABLE Discharge Instructions (ExitCare): Cellulitis and Erysipelas (Skin Infections) Additional Instructions: Keflex every 6 hours for 1 week Ibuprofen every 8 hours with food as needed for pain Rest, no strenuous activity Followup with podiatry within 2 days Followup with primary doctor within 2 days Return to ER with any new/worsening symptoms Prescriptions: Cephalexin [Keflex] 500 mg PO QID 7 Days #28 capsule Ibuprofen [Motrin Tab] 600 mg PO Q8 PRN #30 tab PRN Reason: Pain, Moderate (4-7) Referrals: Podiatry Clinic [Outside] - Follow up with primary Filiberto Rivera MD [Family Provider] - Follow up with primary Forms: [employer] (Ch[place]an), WORK NOTE
[2018-11-11 19:59] LABS: BASO # 0.03 K/mm3 (0.0-2.0); BASO % 0.3 % (0.0-3.0); EOS # 0.2 (0.0-0.7); EOS % 2.3 % (1.5-5.0); HEMOGLOBIN 16.3 g/dL (14.0-18.0); LYMPH # 2.7 (1.2-3.4); LYMPH % 26.5 % (22.0-35.0); MEAN CELL VOLUME 86.2 fl (80.0-105.0); MEAN CORPUSCULAR HEMOGLOBIN 28.8 pg (25.0-35.0); MEAN CORPUSCULAR HGB CONC 33.4 g/dl (31.0-37.0); MEAN PLATELET VOLUME 9.8 fl (7.0-11.0); MONO # 1.2 (0.1-0.6); MONO % 11.4 % (1.0-6.0); RBC 5.66 10^6/uL (3.5-6.1); RED CELL DISTRIBUTION WIDTH 14.4 % (11.5-14.5); WHITE BLOOD COUNT 10.1 10^3/uL (4.5-11.0)
[2018-11-11 20:06] LABS: INR 0.95; PARTIAL THROMBOPLASTIN TIME 29.4 Seconds (26.9-38.3); PROTHROMBIN TIME 10.5 SECONDS (9.4-12.5)
[2018-11-11 21:13] LABS: BLOOD UREA NITROGEN 22 mg/dL (7-21); GFR NON-AFRICAN AMERICAN > 60
[2018-11-11 21:14] LABS: CALCIUM 9.3 mg/dL (8.4-10.5); URIC ACID 8.2 mg/dL (3.5-8.5)
[2018-11-11 21:30] LABS: ALB/GLOB RATIO 1.4 (1.1-1.8); ALBUMIN 4.1 g/dL (3.0-4.8); ALT/SGPT 45 U/L (7-56); AST/SGOT 53 U/L (17-59)
[2018-11-11 22:05] VITALS: BP 125/74; PULSE 80; O2SAT 100
--- NOTE | 2018-11-12 11:25 | RAD ---
Date of service: 11/11/2018 PROCEDURE: Left Foot Radiographs. HISTORY: distal foot pain COMPARISON: None. TECHNIQUE: 3 views obtained. FINDINGS: BONES: Alignment and mineralization there is no acute fracture or destruction. There is an os trigonum. JOINTS: There is severe degenerative osteoarthrosis in the 1st MTP joint with severe reduced joint space, marginal osteophytes and subarticular cystic changes. There is mild hallux valgus. There is severe degenerative osteoarthrosis in the talonavicular and intertarsal joints with reduced joint spaces and marginal osteophytes with subarticular cystic changes. There is mild degenerative osteoarthrosis in the tarsal metatarsal joints. SOFT TISSUES: There is mild soft tissue swelling in the foot. OTHER FINDINGS: None. IMPRESSION: 1. Severe degenerative osteoarthrosis in the 1st MTP joint with mild hallux. 2. Severe degenerative osteoarthrosis in the talonavicular and intertarsal joints and mild degenerative osteoarthrosis in the tarsal metatarsal joint. The final report is tagged to the PA review folder.
== END 2018-11-11 21:35 | disposition home or self-care (01) ==
LOC: ED 18:02
DX: L03.116 Cellulitis of left lower limb (principal); M79.672 Pain in left foot; I10 Essential (primary) hypertension; M10.9 Gout, unspecified; F17.210 Nicotine dependence, cigarettes, uncomplicated
CPT/HCPCS: 73630; 80053; 84550; 85025; 85610; 85651; 85730; 96374; 99284; J1885